=== PATIENT | male | born 1980 | race Caucasian/White ===

== ENCOUNTER 2022-09-06 13:05 | Emergency (ER) | payer OTHER ==
[~2022-09-06] VITALS: Ht 170.2 cm; Wt 86.2 kg
[2022-09-06 13:20] VITALS: BP_SYST 132
--- NOTE | 2022-09-06 13:30 | NUR ---
Placed in room 06 . Placed on teletypesetter monitor, blood pressure machine and pulse oximeter. To gown for exam. Side rails up. Report given to BERNARDINO FLYNN AND LENCHO JARRELL.
--- NOTE | 2022-09-06 13:30 | NUR ---
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 PATIENT ROLLED ANKLE AT WORK & STATED HE HEARD A SNAPPING SOUND. 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 HE BEGAN TO RUN TO STOP HER & FOOTING SLIPPED ON LOOSE DIRT,M CAUSING HIM TO ROLL HIS ANKLE. PATIENT IS ABLE TO WIGGLE TOES & HAS SENSATION TO DISTAL FOOT. CURRENTLY WEARING WORK BOOTS TO MID/UPPER ANKLE AREA, WHICH WERE NOT REMOVED FOR STABLIZATION OF THE AREA. PATIENT STATES PAIN LEVEL WHILE SITTING IS 0/10 BUT INCREASES TO 5/10 WHEN ATTEMPTING TO PUT PRESSURE ON FOOT. NO MED HX, NO MEDS TAKEN, NKA. VSS.
--- NOTE | 2022-09-06 14:00 | NUR ---
ER at bedside examining patient.
[2022-09-06] MEDS ORDERED: KETOROLAC TROMETHAMINE 60 MG/2 ML VIAL IM ONE (14:15)
--- NOTE | 2022-09-06 14:16 | NUR ---
PORTABLE XRAY AT BEDSIDE
[2022-09-06] MEDS ORDERED: IBUP-1971 PO (14:33)
[2022-09-06 14:45] VITALS: BP_SYST 132
--- NOTE | 2022-09-06 14:45 | NUR ---
Patient given written and verbal discharge instructions and verbalizes understanding. ER MD discussed with patient the results and treatment provided. Patient in stable condition. ID arm band removed. Rx of Motrin 800 mg given. Patient educated on pain management and to follow up with PMD. Pain Scale 2/10. Opportunity for questions provided and answered. Medication side effect fact sheet provided.
== END 2022-09-06 14:45 | disposition home or self-care (01) ==
LOC: SED 13:05
DX: S93.401A Sprain of unspecified ligament of right ankle, initial encounter (principal); Z79.899 Other long term (current) drug therapy; X58.XXXA Exposure to other specified factors, initial encounter; Y93.89 Activity, other specified; Y92.89 Other specified places as the place of occurrence of the external cause; Y99.9 Unspecified external cause status
CPT/HCPCS: 99283; 73610; 96372; J1885